=== PATIENT | female | born 1990 | race Caucasian/White ===

== ENCOUNTER → 2019-12-08 | Outpatient (REF) | payer OTHER ==
[~2019-12-08] MED LIST: FERR325T3 PO; IBUP80TA PO; PERCOCET PO
[2019-12-08 17:52] LABS: HEMOGLOBIN 13.4 g/dl (12.0-15.5); MEAN CORPUSCULAR HEMOGLOBIN 30.7 pg (27.0-33.0); MEAN CORPUSCULAR HGB CONC 33.5 g/dl (32.0-36.5); MEAN CORPUSCULAR VOLUME 91.5 fl (80.0-96.0); PLATELET COUNT, AUTOMATED 227 10^3/uL (150-450); RED BLOOD COUNT 4.37 10^6/uL (4.00-5.40); WHITE BLOOD COUNT 12.2 10^3/uL (4.0-10.0)
[2019-12-08 20:31] LABS: CHLAMYDIA DNA AMPLIFICATION NEGATIVE (NEGATIVE); GC DNA AMPLIFICATION NEGATIVE (NEGATIVE)
[2019-12-09 12:34] LABS: HIV 1&2 SCREEN CENTAUR NEGATIVE (NEGATIVE)
[2019-12-10 08:52] LABS: HEPATITIS C VIRUS ABY INDEX 0.2 INDEX (<0.8)
== END ==
LOC: M PLALAB 15:36
PROVIDERS: ATTEND Advanced Practice Midwife
DX: O34.211 Maternal care for low transverse scar from previous cesarean delivery (principal); Z3A.00 Weeks of gestation of pregnancy not specified

== ENCOUNTER → 2020-02-15 | Outpatient (CLI) | payer OTHER ==
--- NOTE | 2020-03-07 13:07 | REP ---
COMPLETE OBSTETRICAL ULTRASOUND: CLINICAL: Anatomical assessment. TECHNIQUE: Transabdominal obstetrical ultrasound with color Doppler evaluation. FINDINGS: Ultrasound examination demonstrates a single live intrauterine in variable presentation. The placenta is noted posteriorly, grade 1 and low-lying approximately 5 mm from the closed internal os. The cervix measures 3.4 cm in length and appears closed. Amniotic fluid volume is normal. heart rate is 150 beats per minute. BIOMETRY CHART: BPD 41 mm 18 weeks 3 day Head circumference 158 mm 18 weeks 5 days Abdominal circumference 143 mm 19 weeks 5 days Femur length 31 mm 19 weeks 5 days Humeral length 29 mm 19 weeks 3 days Estimated gestational age by current measurements is 19 weeks 1 day with estimated date of delivery 07/10/20. Estimated weight is 296 grams (82nd percentile). Anatomical assessment demonstrates normal cisterna magna, cavum, thalamus, spine, stomach, kidneys/bladder, heart/ventricular outflow tracts, three vessel cord/cord insertion and extremities. Limited evaluation of the facial features due to positioning. IMPRESSION: 1. Posterior grade 1 low-lying placenta 5 mm from the closed internal os. 2. Single live intrauterine in variable presentation demonstrating appropriate estimated weight and growth. 3. Limited evaluation of the facial features may warrant follow up. The remainder of the anatomical assessment is complete and normal. [facility]
== END ==
LOC: M WHC 12:36
PROVIDERS: ATTEND Advanced Practice Midwife
DX: Z34.82 Encounter for supervision of other normal pregnancy, second trimester (principal)

== ENCOUNTER → 2020-03-14 | Outpatient (CLI) | payer OTHER ==
--- NOTE | 2020-03-20 12:43 | REP ---
OB ULTRASOUND HISTORY: Follow-up anatomy. TECHNIQUE: Real-time sonographic evaluation of the gravid uterus is performed utilizing transabdominal and endovaginal technique. FINDINGS: There is a single living intrauterine gestation with estimated gestational age of 22 weeks 6 days. Estimated date of confinement (EDC) 07/12/2020. Todays measurements indicate appropriate growth. BIOMETRY AND GROWTH: BPD 53 mm 22 weeks 1 day 29th percentile HC 203 mm 22 weeks 3 days 37th percentile AC 178 mm 22 weeks 5 days 45th percentile Femur length 40 mm 23 weeks 0 days 54th percentile AC/HC ratio 1.14 Normal 1.04 to 1.23 Estimated weight 532 g 36th percentile position is breech. Placenta is posterior grade 1 with no previa or abruption. Tip of the placenta is approximately 3 cm from the internal cervical os. Umbilical cord inserts on the mid aspect of the placenta. Three-vessel cord is noted. heart rate is 143 beats per minute. Amniotic fluid appears within normal limits for gestational age. The visualized anatomy today includes facial structures, stomach, kidneys, and bladder. These are all grossly unremarkable. Cervix is closed and measures 3.5 cm in length. MTDD
== END ==
LOC: M WHC 12:46
PROVIDERS: ATTEND Advanced Practice Midwife
DX: O32.1XX0 Maternal care for breech presentation, not applicable or unspecified (principal); Z3A.22 22 weeks gestation of pregnancy

== ENCOUNTER → 2020-04-05 | Outpatient (CLI) | payer OTHER ==
[2020-04-05 17:11] LABS: HEMOGLOBIN 9.8 g/dl (12.0-15.5); MEAN CORPUSCULAR HEMOGLOBIN 31.3 pg (27.0-33.0); MEAN CORPUSCULAR HGB CONC 32.7 g/dl (32.0-36.5); MEAN CORPUSCULAR VOLUME 95.8 fl (80.0-96.0); PLATELET COUNT, AUTOMATED 240 10^3/uL (150-450); RED BLOOD COUNT 3.13 10^6/uL (4.00-5.40); WHITE BLOOD COUNT 11.8 10^3/uL (4.0-10.0)
== END ==
LOC: M PLALAB 13:18
PROVIDERS: ATTEND Advanced Practice Midwife
DX: Z34.82 Encounter for supervision of other normal pregnancy, second trimester (principal)

== ENCOUNTER → 2020-06-14 | Outpatient (REF) | payer OTHER ==
[2020-06-14 15:29] LABS: HEMATOCRIT 28.5 % (36.0-47.0); HEMOGLOBIN 9.1 g/dl (12.0-15.5); MEAN CORPUSCULAR HGB CONC 31.9 g/dl (32.0-36.5); MEAN CORPUSCULAR VOLUME 96.9 fl (80.0-96.0); PLATELET COUNT, AUTOMATED 211 10^3/uL (150-450); RED BLOOD COUNT 2.94 10^6/uL (4.00-5.40); WHITE BLOOD COUNT 12.4 10^3/uL (4.0-10.0)
== END ==
LOC: M PLALAB 13:43
PROVIDERS: ATTEND Specialist
DX: Z34.83 Encounter for supervision of other normal pregnancy, third trimester (principal); Z3A.36 36 weeks gestation of pregnancy

== ENCOUNTER → 2020-06-30 | Outpatient (CLI) | payer OTHER ==
[~2020-06-30] MED LIST changes: +OXYC1TAB23 PO
== END ==
LOC: M LABSMTC 10:39
PROVIDERS: ATTEND Anesthesiology
DX: Z01.812 Encounter for preprocedural laboratory examination (principal); Z20.822 Contact with and (suspected) exposure to COVID-19

== ENCOUNTER 2020-07-05 07:12 | Inpatient (IN) | payer OTHER ==
[~2020-07-05] VITALS: Ht 152.4 cm; Wt 65.0 kg
[2020-07-05] VITALS (7 sets, daily range): BP systolic 91–107; BP diastolic 50–67
[~2020-07-05 07:12] MED LIST changes: -OXYC1TAB23 PO
--- OUTSIDE RECORDS SUMMARY | 2020-07-05 07:15 | CCD ---
Author Author [facility] Organization [facility] Address Unknown Phone Unavailable Care Team Providers Care Editor Magazine Name Role Phone StellajudyLore Unavailable PROBLEMS Type Condition ICD9-CM Code [id number] Code Onset Dates Condition S tatus SNOMED Code Notes Problem Smoking (tobacco) complicating , second trimester O99.332 Active 781660118 Problem Anemia affecting in third trimester O99. 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, third trimester, not applicable or unspecified O36.0130 ; Maternal care due to low transverse uterine scar from previous delivery O34.211 ; 29 weeks gestation of Z3A.29 and Encounter for immunization Z23 IMMUNIZATIONS Vaccine Route Administration Date Status RHo (D) Immune Globulin 300mcg/1.5mL (RhoGAM) IM Intramuscular N 2019 Administered TDAP 0.5mL (Boostrix) IM Intramuscular Apr 27, 2020 Administe red SOCIAL HISTORY Tobacco Use: Social History Observation Description Date Details (start date - stop date) Current Smoker Sex Assigned At : Social History Observation Description Sex Assigned At Unknown Domestic Violence: Question Answer Notes Status: No history of abuse Sexual Hx: Question Answer Notes Had sex in the last 12 months (vaginal, oral, or anal)? Yes with Men only Use protection? No Tobacco Use: Question Answer Notes Are you a: current smoker How many cigarettes a day do you smoke? 5 or less Are you interested in quitting? Ready to quit Counseled the patient on tobacco use, cessation provided 06/2019 REASON FOR REFERRAL No Information VITAL SIGNS Weight 134.6 lbs Apr, Height 60 in Apr, BMI 26.287 kg/m2 Apr, Blood pressure systolic 98 mm Hg Apr, Blood pressure diastolic 58 mm Hg Apr, MEDICATIONS Medication SIG (Take, Route, Frequency, Duration) Notes Start Da te End Date Status Vitamins 28-0.8 MG 1 tablet Orally Once a day Active Ferrous Sulfate 325 (65 Fe) MG 1 tablet Orally Once a day for 30 day(s) Mar, Active PROCEDURES Procedure Date Ordered Result Body Site Immunization: Boostrix 0.5mL IM (TDAP) 2020-04-27 N/A Injection: RhoGAM 300mcg/1.5mL IM (Rho [D] Immune Globulin H uman) 2020-04-27 N/A RESULTS No Results REASON FOR VISIT 3-4 WK PN MEDICAL (GENERAL) HISTORY Type Description Date Surgical History C section 09/25/2014 Hospitalization History childbirth Goals Section No Information Health Concerns No Information MEDICAL EQUIPMENT No Information MENTAL STATUS No Information FUNCTIONAL STATUS No Information ASSESSMENTS Encounter Date Diagnosis Assessment Notes Treatment Notes Treatm ent Clinical Notes Apr, Maternal care for anti-D [Rh ] antibodies, third trimester, not applicable or unspecified (ICD-10 - O36.0130) Apr, Maternal care due to low tra nsverse uterine scar from previous delivery (ICD-10 - O34.211) Apr, 29 weeks gestation of (ICD-10 - Z3A.29 ) Apr, Encounter for immunization (ICD-10 - Z23) PLAN OF TREATMENT Next Appt Details 2 Weeks Reason: Provider Name:Michelle Cooper, 2020-05 01:00:00 PM, [address] [place], [address], Provider Name:Ty Armstrong, 2020-06-14 01:00:00 PM, [address] [place], [phone], Provider Name:Ty Armstrong 2020-07-05 09:30:00 AM, [address] [place] [address], [phone], Provider Name:Bennett Hernadez, 2020-07-05 0 9:30:00 AM, [address] [place] [address], [phone], Provider Name:Ty Armstrong, 2020-07-19 09:40:00 AM, [address] [place] [address], [phone], Provider Name:Ty Armstrong, 2020-08-29 11:40:00 AM, [address] [place] [address], [phone], Follow Up:2 WeeksPrenatal Insurance Providers Payer Name Payer Address Payer Phone Insured Name Patient Relati onship to Insured Coverage Start Date Coverage End Date [facility] [address] [facility] [id number] AMANDA WONG self
--- OUTSIDE RECORDS SUMMARY | 2020-07-05 07:15 | CCD ---
Author Author [facility] Organization [facility] Address Unknown Phone Unavailable Care Team Providers Care Curator Of Education Name Role Phone Ty Armstrong Unavailable PROBLEMS Type Condition ICD9-CM Code DXF23-TZ Code Onset Dates Condition S tatus SNOMED Code Notes Problem Supervision of other normal Z34.80 Ac tive [id number] Problem Smoking (tobacco) complicating , second trimester O99.332 Active 645612718 ALLERGIES No Known Allergies ENCOUNTERS from 1991 to 2020-04-24 Encounter Location Date Provider Diagnosis [facility] [address] [place] [phone] Apr, Ty Armstrong IMMUNIZATIONS No Information SOCIAL HISTORY Tobacco Use: Social History Observation [...] REASON FOR REFERRAL No Information VITAL SIGNS No information MEDICATIONS Medication SIG (Take, Route, Frequency, Duration) Notes Start Da te End Date Status Ferrous Sulfate 325 (65 Fe) MG 1 tablet Orally Once a day for 30 day(s) Mar, Active Vitamins 28-0.8 MG 1 tablet Orally Once a day Active PROCEDURES No Information RESULTS No Results REASON FOR VISIT AUTHORIZATION MEDICAL (GENERAL) HISTORY Type Description Date Surgical History C section 09/25/2014 Hospitalization History childbirth Goals Section No Information Health Concerns No Information MEDICAL EQUIPMENT No Information MENTAL STATUS No Information FUNCTIONAL STATUS No Information ASSESSMENTS No Information PLAN OF TREATMENT Medication Medication Name Sig Start Date Stop Date Ferrous Sulfate 325 (65 Fe) MG 1 tablet Orally Once a day fo r 30 day(s) Mar, Next Appt Details Provider Name:Lore Edenilson Toan, 2020-04-27 11:00:00 AM, [address] [place] [address], [phone], Provider Name:Ty Armstrong, 2020-06-14 01:00:00 PM, [address] [place] [address], [phone], Provider Name:Ty Armstrong, 2020-07-05 09:30:00 AM, [address] [place] [address], [phone], Provider Name:Bennett Hernadez, 2020-07-05 0 9:30:00 AM, [address] [place] [address], [phone], Provider Name:Ty Armstrong, 2020-07-19 09:40:00 AM, [address] [place] [address], [phone], Provider Name:Ty Armstrong, 2020-08-29 11:40:00 AM, [address] [place] [address], [phone], Insurance Providers Payer Name Payer Address Payer Phone Insured Name Patient Relati onship to Insured Coverage Start Date Coverage End Date [facility] [address] [facility] [phone] AMANDA WONG self
--- OUTSIDE RECORDS SUMMARY | 2020-07-05 07:15 | CCD ---
Author Author [facility] Organization [facility] [employer] Address Unknown Phone Unavailable Care Team Providers Care Brass Polisher Name Role Phone Joann White Unavailable PROBLEMS Type Condition ICD9-CM Code WZP11-NR Code Onset Dates Condition S tatus SNOMED Code Notes Problem Supervision of other normal Z34.80 Ac tive 844938098 Problem Smoking (tobacco) complicating , second trimester O99.332 Active 773456490 ALLERGIES No Known Allergies ENCOUNTERS from 1991 to 2020-04-26 Encounter Location Date Provider Diagnosis [facility] [address] [place] [phone] Mar, Joann White Smoking (tobacco) co mplicating , second trimester O99.332 ; Nicotine dependence, cigarettes, uncomplicated F17.210 ; Maternal care due to low transverse uterine scar from previous delivery O34.211 and 26 weeks gestation of Z3A.26 IMMUNIZATIONS No Information SOCIAL HISTORY Tobacco Use: [...] FOR REFERRAL No Information VITAL SIGNS Weight 132.8 lbs Mar, Height 60 in Mar, BMI 25.936 kg/m2 Mar, Blood pressure systolic 102 mm Hg Mar, Blood pressure diastolic 58 mm Hg Mar, MEDICATIONS Medication SIG (Take, Route, Frequency, Duration) Notes Start Da te End Date Status Ferrous Sulfate 325 (65 Fe) MG 1 tablet Orally Once a day for 30 day(s) Mar, Active Vitamins 28-0.8 MG 1 tablet Orally Once a day Active PROCEDURES No Information RESULTS No Results REASON FOR VISIT 4WK PN MEDICAL (GENERAL) HISTORY Type Description Date Surgical History C section 09/25/2014 Hospitalization History childbirth Goals Section No Information Health Concerns No Information MEDICAL EQUIPMENT No Information MENTAL STATUS No Information FUNCTIONAL STATUS No Information ASSESSMENTS Encounter Date Diagnosis Assessment Notes Treatment Notes Treatm ent Clinical Notes Mar, Smoking (tobacco) complicati ng , second trimester (ICD-10 - O99.332) Mar, Nicotine dependence, cigarettes, uncompl icated (ICD-10 - F17.210) Mar, Maternal care due to low tra nsverse uterine scar from previous delivery (ICD-10 - O34.211) Mar, 26 weeks gestation of (ICD-10 - Z3A.26 ) PLAN OF TREATMENT Medication Medication Name Sig Start Date Stop Date Ferrous Sulfate 325 (65 Fe) MG 1 tablet Orally Once a day fo r 30 day(s) Mar, Next Appt Details 3-4 Weeks Reason:PAP/ Provider Name:Lore Joya, 2020-04-27 11:00:00 AM, [address] [place] [address], [phone], Provider Name:Ty Armstrong, 2020-06-14 01:00:00 PM, [address] [place] [address], [phone], Provider Name:Ty Armstrong, 2020-07-05 09:30:00 AM, [address] [place] [address], [phone], Provider Name:Bennett Hernadez, 2020-07-05 0 9:30:00 AM, [address] [place] [address], [phone], Provider Name:Ty Armstrong, 2020-07-19 09:40:00 AM, [address] [place], [phone], Provider Name:Ty Armstrong, 2020-08-29 11:40:00 AM, [address] [place], [address], Follow Up:3-4 WeeksPAP/ Insurance Providers Payer Name Payer Address Payer Phone Insured Name Patient Relati onship to Insured Coverage Start Date Coverage End Date [facility] COMMUNITY PLAN [facility] [address] [facility] [address] AMANDA WONG
--- OUTSIDE RECORDS SUMMARY | 2020-07-05 07:15 | CCD ---
Author Author [facility] Organization [facility] Address Unknown Phone Unavailable Care Team Providers Care Student Services Rep Name Role Phone CANDACE PEREZ Unavailable Unavailable Re-disclosure Warning The records that you are about to access may contain information from federally-assisted alcohol or drug abuse programs. If such information is present, then the following federally mandated warning applies: This information has been disclosed to you from records protected by federal confidentiality rules (42 CFR part 2). The federal rules prohibit you from making any further disclosure of this information unless further disclosure is expressly permitted by the written consent of the person to whom it pertains or as otherwise permitted by 42 CFR part 2. A general authorization for the release of medical or other information is NOT sufficient for this purpose. The Federal rules restrict any use of the information to criminally investigate or prosecute any alcohol or drug abuse patient.The records that you are about to access may contain highly sensitive health information, the redisclosure of which is protected by Article 27-F of the [place] State Public Health law. If you continue you may have access to information: Regarding HIV / AIDS; Provided by facilities licensed or operated by the [facility] Office of Mental Health; or Provided by the [facility] Office for People With Developmental Disabilities. If such information is present, then the following [facility] mandated warning applies: This information has been disclosed to you from confidential records which are protected by state law. State law prohibits you from making any further disclosure of this information without the specific written consent of the person to whom it pertains, or as otherwise permitted by law. Any unauthorized further disclosure in violation of state law may result in a fine or [place] [facility] sentence or both. A general authorization for the release of medical or other information is NOT sufficient authorization for further disc losure. Family History Family Member Name Family Member Gender Family Member Status Date o f Status Description Data Source(s) Unknown Unknown Problem MEDENT ([facility], ) Encounters Encounter Providers Location Date Indications Data Source(s ) ( ESTOB) [facility] Est OB [address] [place] [address] 06/14/2020 12:00:00 AM EST eCW1 ([facility]) ( ESTOB) [facility] Est OB [address] [place] [address] 05/16/2020 12:00:00 AM EST eCW1 ([facility]) ( ESTOB) [facility] Est OB [address] [place] [address] 04/27/2020 12:00:00 AM EST eCW1 ([facility]) Unknown [address] [facility] [phone] 04/24/2020 12:00:00 AM EST eCW1 ([facility]) ( ESTOB) [facility] Est OB [address] [place] [address] 04/05/2020 12:00:00 AM EDT eCW1 ([facility]) Unknown [address] [facility] [address] 04/05/2020 12:00:00 AM EDT eCW1 ([facility]) Outpatient Attender: CANDACE [facility] 11/16/2019 07:52:01 PM EDT [facility] Immunizations Vaccine Date Status Description Data Source(s) RHo (D) Immune Globulin 300mcg/1.5mL (RhoGAM) 04/27/2020 11: 36:00 AM EST completed eCW1 ([facility]) RHo (D) Immune Globulin 300mcg/1.5mL (RhoGAM) 04/27/2020 11: 36:00 AM EST completed eCW1 ([facility]) RHo (D) Immune Globulin 300mcg/1.5mL (RhoGAM) 04/27/2020 11: 36:00 AM EST completed eCW1 ([facility]) Tdap 04/27/2020 11:34:00 AM EST completed e CW1 ([facility]) Tdap 04/27/2020 11:34:00 AM EST completed e CW1 ([facility]) Tdap 04/27/2020 11:34:00 AM EST completed e CW1 ([facility]) Medications Medication Brand Name Start Date Product Form Dose Route Admi nistrative Instructions Pharmacy Instructions Status Indications Reaction Description Data Source(s) 325 mg (65 mg iron) 04/06/2020 12:00:00 AM EDT tablet 30 TAKE ONE TABLET BY MOUTH EVERY DAY TAKE ONE TABLET BY MOUTH EVERY DAY SOLD: 04/06/2020 [facility] ferrous sulfate 325 MG Oral Tablet Ferrous Sulfate 325 (65 Fe) MG Ferrous Sulfate 325 (65 Fe) MG 04/05/2020 12:00:00 AM EDT 1.0 {tablet} active Ferrous Sulfate 325 (65 Fe) MG eCW1 ([facility]) ferrous sulfate 325 MG Oral Tablet Ferrous Sulfate 325 (65 Fe) MG Ferrous Sulfate 325 (65 Fe) MG 04/05/2020 12:00:00 AM EDT 1.0 {tablet} active Ferrous Sulfate 325 (65 Fe) MG eCW1 ([facility]) ferrous sulfate 325 MG Oral Tablet Ferrous Sulfate 325 (65 Fe) MG Ferrous Sulfate 325 (65 Fe) MG 04/05/2020 12:00:00 AM EDT 1.0 {tablet} active Ferrous Sulfate 325 (65 Fe) MG eCW1 ([facility]) ferrous sulfate 325 MG Oral Tablet Ferrous Sulfate 325 (65 Fe) MG Ferrous Sulfate 325 (65 Fe) MG 04/05/2020 12:00:00 AM EDT 1.0 {tablet} active Ferrous Sulfate 325 (65 Fe) MG eCW1 ([facility]) ferrous sulfate 325 MG Oral Tablet Ferrous Sulfate 325 (65 Fe) MG Ferrous Sulfate 325 (65 Fe) MG 04/05/2020 12:00:00 AM EDT 1.0 {tablet} active Ferrous Sulfate 325 (65 Fe) MG eCW1 ([facility]) ferrous sulfate 325 MG Oral Tablet Ferrous Sulfate 325 (65 Fe) MG Ferrous Sulfate 325 (65 Fe) MG 04/05/2020 12:00:00 AM EDT 1.0 {tablet} active Ferrous Sulfate 325 (65 Fe) MG eCW1 ([facility]) Insurance Providers Payer name Policy type / Coverage type Policy ID Covered green party ID Covered green party's relationship to munson Policy [employer] Plan Information [facility] [id number] SP [id number] [facility] O [id number] S [id number] [facility] [employer] (HMO) [id number] Self [id number] D Managed Care [facility] P [id number] S [id number] [facility] [id number] SP [id number] MEDICAID S [id number] S [id number] [facility]([place]) P [id number] S [id number] MEDICAID [id number] SP [id number] Problems, Conditions, and Diagnoses Code Display Name Description Problem Type Effective Dates Data Source(s) O99.013 Anemia of Anemia affecting i n third trimester Problem 04/27/2020 12:00:00 AM EST eCW1 ([facility]) O99.332 [id number] Smoking (tobacco) complicating p regnancy, second trimester Problem 04/05/2020 12:00:00 AM EDT eCW1 ([facility]) Z34.80 care Supervision of other normal P roblem 12/08/2019 12:00:00 AM EDT eCW1 ([facility]) Surgeries/Procedures Procedure Description Date Indications Data Source(s) Injection: RhoGAM 300mcg/1.5mL IM (Rho [D] Immune Globulin H uman) 04/27/2020 12:00:00 AM EST eCW1 ([facility]) Immunization: Boostrix 0.5mL IM (TDAP) 04/27/2020 12:0 0:00 AM EST eCW1 ([facility]) Results ID Date Data Source [id number] 06/30/2020 10:00:00 AM EST [facility] Name Value Range Interpretation Code Description Data Ragini rce(s) Supporting Document(s) SARS coronavirus 2 RNA Not Detected [facility] [place] This lab was ordered by [facility] and reported by [facility]. ID Date Data Source GROUP B STREP CULTURE 06/14/2020 12:00:00 AM EST eCW1 ([facility]) Name Value Range Interpretation Code Description Data Ragini rce(s) Supporting Document(s) GROUP B STREP CULTURE eCW1 ([facility]) Procedure Social History Code Duration Value Status Description Data Source(s ) Smoking 06/24/2020 12:00:00 AM EST Current Smoker completed Curre nt Smoker eCW1 ([facility]) Smoking 05/15/2020 12:00:00 AM EST Current Smoker completed Curre nt Smoker eCW1 ([facility]) Smoking 04/26/2020 12:00:00 AM EST Current Smoker completed Curre nt Smoker eCW1 ([facility]) Smoking 04/26/2020 12:00:00 AM EST Current Smoker completed Curre nt Smoker eCW1 ([facility]) Smoking 03/31/2020 12:00:00 AM EDT Current Smoker completed Curre nt Smoker eCW1 ([facility]) Smoking 03/31/2020 12:00:00 AM EDT Current Smoker completed Curre nt Smoker eCW1 ([facility]) Vital Signs ID Date Data Source UNK Name Value Range Interpretation Code Description Data Source(s) Diastolic blood pressure 72 mm[Hg] 72 mm[Hg] eCW1 ([facility]) Systolic blood pressure 108 mm[Hg] 108 mm[Hg] e CW1 ([facility]) Body mass index (BMI) [Ratio] 27.693 kg/m2 27.6 93 kg/m2 W1 ([facility]) Body height 60 [in_i] 60 [in_i] eCW1 ([facility]) Body weight 64.32 kg 64.32 kg eCW1 ([facility]) Body weight 141.8 [lb_av] 141.8 [lb_av] eCW1 ([facility]) Diastolic blood pressure 56 mm[Hg] 56 mm[Hg] eCW1 ([facility]) Systolic blood pressure 106 mm[Hg] 106 mm[Hg] e CW1 ([facility]) Body mass index (BMI) [Ratio] 26.951 kg/m2 26.9 51 kg/m2 eCW1 ([facility]) Body height 60 [in_i] 60 [in_i] eCW1 ([facility]) Body weight 62.6 kg 62.6 kg eCW1 ([facility]) Body weight 138.0 [lb_av] 138.0 [lb_av] eCW1 ([facility]) Body weight 134.6 [lb_av] 134.6 [lb_av] eCW1 ([facility]) Diastolic blood pressure 58 mm[Hg] 58 mm[Hg] eCW1 ([facility]) Systolic blood pressure 98 mm[Hg] 98 mm[Hg] e CW1 ([facility]) Body mass index (BMI) [Ratio] 26.287 kg/m2 26.2 87 kg/m2 eCW1 ([facility]) Body height 60 [in_i] 60 [in_i] eCW1 ([facility]) Diastolic blood pressure 58 mm[Hg] 58 mm[Hg] eCW1 ([facility]) Systolic blood pressure 102 mm[Hg] 102 mm[Hg] e CW1 ([facility]) Body mass index (BMI) [Ratio] 25.936 kg/m2 25.9 36 kg/m2 W1 ([facility]) Body height 60 [in_i] 60 [in_i] eCW1 ([facility]) Body weight 132.8 [lb_av] 132.8 [lb_av] eCW1 ([facility]) Patient Treatment Plan of Care Planned Activity Planned Date Details Description Data Source (s) ferrous sulfate 325 MG Oral Tablet 04/05/2020 12:00:00 AM EDT eCW1 ([facility]) ferrous sulfate 325 MG Oral Tablet 04/05/2020 12:00:00 AM EDT eCW1 ([facility]) ferrous sulfate 325 MG Oral Tablet 04/05/2020 12:00:00 AM EDT eCW1 ([facility])
--- OUTSIDE RECORDS SUMMARY | 2020-07-05 07:15 | CCD ---
Author Author [facility] Organization [facility] Address Unknown Phone Unavailable Care Team Providers Care Customer Business Manager Name Role Phone Michelle Cooper Unavailable PROBLEMS Type Condition ICD9-CM Code [id number] Code Onset Dates Condition S tatus SNOMED Code Notes Problem Smoking (tobacco) complicating , second trimester O99.332 Active 435014605 Problem Anemia affecting in third trimester O99. 013 Active 45274043 Problem Supervision of other normal Z34.80 Ac tive [id number] ALLERGIES No Known Allergies ENCOUNTERS from 1991 to 2020-05-17 Encounter Location Date Provider Diagnosis [facility] [address] [place] [address] May, Michelle Cooper 31 weeks gestation o f Z3A.31 and Maternal care due to low transverse uterine scar from previous delivery O34.211 IMMUNIZATIONS Vaccine Route Administration Date Status RHo [...] FOR REFERRAL No Information VITAL SIGNS Weight 138.0 lbs May, Weight-kg 62.6 kg May, Height 60 in May, BMI 26.951 kg/m2 May, Blood pressure systolic 106 mm Hg May, Blood pressure diastolic 56 mm Hg May, MEDICATIONS Medication SIG (Take, Route, Frequency, Duration) Notes Start Da te End Date Status Vitamins 28-0.8 MG 1 tablet Orally Once a day Active Ferrous Sulfate 325 (65 Fe) MG 1 tablet Orally Once a day for 30 day(s) Mar, Active PROCEDURES No Information RESULTS No Results REASON FOR VISIT 2WK PN MEDICAL (GENERAL) HISTORY Type Description Date Surgical History C section 09/25/2014 Hospitalization History childbirth Goals Section No Information Health Concerns No Information MEDICAL EQUIPMENT No Information MENTAL STATUS No Information FUNCTIONAL STATUS No Information ASSESSMENTS Encounter Date Diagnosis Assessment Notes Treatment Notes Treatm ent Clinical Notes May, 31 weeks gestation of (ICD-10 - Z3A.31 ) May, Maternal care due to low tra nsverse uterine scar from previous delivery (ICD-10 - O34.211) PLAN OF TREATMENT Next Appt Details 4 Weeks Reason:PN Provider Name:Ty Armstrong, 2020-06-14 01:00:00 PM, [address] [place] [address], [phone], Provider Name:Ty Armstrong 2020-07-05 09:30:00 AM, [address] [place] [address], [phone], Provider Name:Bennett Hernadez, 2020-07-05 0 9:30:00 AM, [address] [place] [address], [phone], Provider Name:Ty Armstrong 2020-07-19 09:40:00 AM, [address] [place] [address], [phone], Provider Name:Ty Armstrong 2020-08-29 11:40:00 AM, [address] [place] [address], [phone], Follow Up:4 WeeksPN Insurance Providers Payer Name Payer Address Payer Phone Insured Name Patient Relati onship to Insured Coverage Start Date Coverage End Date [facility] [address] [facility] [phone] AMANDA WONG self
--- OUTSIDE RECORDS SUMMARY | 2020-07-05 07:15 | CCD ---
Author Author [facility] Organization [facility] Address Unknown Phone Unavailable Care Team Providers Care Legal Writing Professor Name Role Phone Ty Armstrong Unavailable PROBLEMS Type Condition ICD9-CM Code [id number] Code Onset Dates Condition S tatus SNOMED Code Notes Problem Smoking (tobacco) complicating , second trimester O99.332 Active 717125943 Problem Anemia affecting in third trimester O99. 013 Active 65483061 Problem Supervision of other normal Z34.80 Ac tive [id number] ALLERGIES No Known Allergies ENCOUNTERS from 1991 to 2020-06-28 Encounter Location Date Provider Diagnosis [facility] [address] [place] [address] Jun, Ty Armstrong 36 weeks gestation o f Z3A.36 and Maternal care due to low transverse [...] FOR REFERRAL No Information VITAL SIGNS Weight 141.8 lbs Jun, Weight-kg 64.32 kg Jun, Height 60 in Jun, BMI 27.693 kg/m2 Jun, Blood pressure systolic 108 mm Hg Jun, Blood pressure diastolic 72 mm Hg Jun, MEDICATIONS Medication SIG (Take, Route, Frequency, Duration) Notes Start Da te End Date Status Vitamins 28-0.8 MG 1 tablet Orally Once a day Active Ferrous Sulfate 325 (65 Fe) MG 1 tablet Orally Once a day for 30 day(s) Mar, Active PROCEDURES No Information RESULTS Component Value Reference Range GROUP B STREP CULTURE Reviewed date:06/27/2020 15:25:12 Interpretation: Performing Lab:[facility], [facility] [address] [facility] [address] , ,[place] [id number] REASON FOR VISIT 1WK PN & PRE OP C/S 07/05/20 MEDICAL (GENERAL) HISTORY Type Description Date Surgical History C section 09/25/2014 Hospitalization History childbirth Goals Section No Information Health Concerns No Information MEDICAL EQUIPMENT No Information MENTAL STATUS No Information FUNCTIONAL STATUS No Information ASSESSMENTS Encounter Date Diagnosis Assessment Notes Treatment Notes Treatm ent Clinical Notes Jun, 36 weeks gestation of (ICD-10 - Z3A.36 ) Jun, Maternal care due to low tra nsverse uterine scar from previous delivery (ICD-10 - O34.211) PLAN OF TREATMENT Treatment Notes Test Name Order Date CBC - Complete Blood Count 2020-06-28 Next Appt Details Provider Name:Joann White, 2020-06-30 11:40:00 AM, [address] [place] [address], [phone], Provider Name:Ty Armstrong, 2020-07-05 09:30:00 AM, [address] [place] [address], [phone], Provider Name:Bennett Hernadez, 2020-07-05 0 9:30:00 AM, [address] [place] [address], [phone], Provider Name:Ty Armstrong, 2020-07-19 10:00:00 AM, [address] [place], [phone], Provider Name:Ty Armstrong, 2020-08-29 11:40:00 AM, [address] [place], [phone], Insurance Providers Payer Name Payer Address Payer Phone Insured Name Patient Relati onship to Insured Coverage Start Date Coverage End Date [facility] [address] [facility] [phone] AMANDA WONG
--- OUTSIDE RECORDS SUMMARY | 2020-07-05 07:15 | CCD ---
Author Author [facility] Organization [facility] Address Unknown Phone Unavailable Care Team Providers Care College Dean Name Role Phone SatyaBennett Unavailable PROBLEMS Type Condition ICD9-CM Code PNH37-CS Code Onset Dates Condition S tatus SNOMED Code Notes Problem Supervision of other normal Z34.80 Ac tive 118896465 Problem Smoking (tobacco) complicating , second trimester O99.332 Active [id number] ALLERGIES No Known Allergies ENCOUNTERS from 1991 to 2020-04-06 Encounter Location Date Provider Diagnosis [facility] [address] [place] [phone] Mar, Bennett Hernadez IMMUNIZATIONS No Information SOCIAL HISTORY Tobacco Use: [...] MEDICATIONS Medication SIG (Take, Route, Frequency, Duration) Start Date En d Date Status Ferrous Sulfate 325 (65 Fe) MG 1 tablet Orally Once a day fo r 30 day(s) Mar, Active Vitamins 28-0.8 MG 1 tablet Orally Once a day Active PROCEDURES No Information RESULTS No Results REASON FOR VISIT No Information MEDICAL (GENERAL) HISTORY Type Description Date Surgical [...] 30 day(s) Mar, Next Appt Details Provider Name:Ty Armstrong, 2020-07-05 09:30:00 AM, [address] [place] [address], [phone], Provider Name:Bennett Hernadez, 2020-07-05 0 9:30:00 AM, [address] [place] [address], [phone], Insurance Providers Payer Name Payer Address Payer Phone Insured Name Patient Relati onship to Insured Coverage Start Date Coverage End Date [facility] COMMUN[facility] PLAN [facility] [address] [facility] [phone] AMANDA WONG self
[2020-07-05] MEDS ORDERED: LR 1,000 ML IV SCH ×3 (07:55→10:45)
[2020-07-05] MEDS ORDERED: LACTATED RINGER'S 1000 ML IV STA (07:55)
[2020-07-05] MEDS ORDERED: ceFAZolin SOD 2 GM in IV 1 EA IV ONE (08:00)
[2020-07-05] MEDS ORDERED: BICITRA 30ML SOLN UDC PO ONE (08:00)
[2020-07-05 08:28] LABS: HEMATOCRIT 30.9 % (36.0-47.0); HEMOGLOBIN 10.3 g/dl (12.0-15.5); MEAN CORPUSCULAR HGB CONC 33.3 g/dl (32.0-36.5); MEAN CORPUSCULAR VOLUME 93.1 fl (80.0-96.0); PLATELET COUNT, AUTOMATED 225 10^3/uL (150-450); RED BLOOD COUNT 3.32 10^6/uL (4.00-5.40); WHITE BLOOD COUNT 11.1 10^3/uL (4.0-10.0)
[2020-07-05] MEDS ORDERED: MORPHINE PRES-FREE INJ 10 MG/10 ML VIAL (J2274) As Ordered ONE (09:21)
[2020-07-05] MEDS ORDERED: OXYTOCIN 30 UNITS IN 0.9% NaCl 500ML IV BAG (J2590) As Ordered ONE ×2 (09:21→10:49)
[2020-07-05] MEDS ORDERED: ePHEDrine SULFATE 25 MG/5 ML(5MG/ML) SYRINGE As Ordered ONE (09:21)
[2020-07-05] MEDS ORDERED: PHENYLephrine 500MCG 5ML (100MCG/ML) SYRINGE As Ordered ONE (09:21)
[2020-07-05] MEDS ORDERED: NALBUPHINE HCL 10 MG/ML AMP (J2300) IV PRN (09:45)
[2020-07-05] MEDS ORDERED: NALOXONE INJ 0.4MG/1ML VIAL (J2310 PER 1MG) IV PRN ×2 (09:45)
[2020-07-05] MEDS ORDERED: ONDANSETRON 4MG/2ML VIAL IV PRN ×3 (09:45→10:45)
[2020-07-05] MEDS ORDERED: METOCLOPRAMIDE INJ 10MG/2ML VIAL (J2765 PER 1) IV PRN (09:45)
[2020-07-05] MEDS ORDERED: ONDANSETRON 4MG/2ML VIAL As Ordered ONE (09:53)
[2020-07-05] MEDS ORDERED: METOCLOPRAMIDE INJ 10MG/2ML VIAL (J2765 PER 1) As Ordered ONE (10:07)
[2020-07-05] MEDS ORDERED: KETOROLAC 60MG 2ML VIAL As Ordered ONE (10:07)
[2020-07-05] MEDS ORDERED: OXYTOCIN DRIP 30 UNITS in IV 1 EA IV SCH (10:31)
--- NOTE | 2020-07-05 10:41 | ROOPDOC ---
[facility] Report Of Operation Report of Operation DATE OF PROCEDURE: 07/05/20 Report of operation Preoperative diagnosis: 39 0/7 weeks, prior Postoperative diagnosis: same Procedure: Repeat low transverse section. Surgeon: Marin Harrington M.D. Asst.: Bennett Hernadez CNM EBL: 500 ml. Urine output: 100 mL's. Findings: 6 lbs. 13 oz. male , Score 9 and 9 g, normal uterus, fallopian tubes, ovaries. Operative summary: Patient taken to the operating room where spinal anesthesia was induced. She was prepped draped sterile fashion in the supine position. A Ashley catheter was placed. A Pfannenstiel skin incision was made with scalpel. Fascia was incised and extended bilaterally. The peritoneal cavity was entered. A Mobius retractor was placed. A bladder flap was created. A curvilinear incision was made in lower uterine segment until Clear fluid was noted. The incision was extended manually. The was delivered from the vertex position without difficulty. Cord was double clamped and cut. The infant was handed waiting nurses. The placenta was expressed. Uterus was closed with O- Vicryl in a running locked fashion. A second imbricating layer of Vicryl was placed. Peritoneum was closed with 2-0 Vicryl a running fashion. Fascia was closed with 0 Vicryl in running fashion. Skin was closed 4-0 Monocryl subcuticular sutures. Sponge, instrument and needle counts were correct. Bennett Hernadez CNM, assisted with all aspects of the procedure. She helped create each layer of the incision and deliver the fetus. MARIN HARRINGTON MD Jul 05, 2020 10:41
[2020-07-05] MEDS ORDERED: OXYC1TAB23 PO (10:42)
[2020-07-05] MEDS ORDERED: IBUP80TA PO (10:43)
[2020-07-05] MEDS ORDERED: MEASLES,MUMPS,RUBELLA VACCINE INJ (MMR-II) (90707) SC SCH (10:45)
[2020-07-05] MEDS ORDERED: oxyCODONE 5MG TAB PO PRN (10:45)
[2020-07-05] MEDS ORDERED: PERCOCET 5MG/325MG TAB PO PRN (10:45)
[2020-07-05] MEDS ORDERED: fentaNYL 100 MCG/2 ML INJECTION (J3010) IV PRN (10:45)
[2020-07-05] MEDS ORDERED: RHOGAM 300 MCG (1500 IU) INJ (J2790) IM SCH (10:45)
[2020-07-05] MEDS: diphenhydrAMINE 50MG/ML VIAL (J1200) IV PRN ×2 (15:17→19:36)
[2020-07-05] MEDS: KETOROLAC 30 MG/ML 1ML VIAL IV SCH ×2 (15:42→21:55)
[2020-07-05] MEDS ORDERED: LR 1,000 ML IV ONE (15:45)
[2020-07-05] MEDS: DOCUSATE SODIUM 100MG CAPSULE PO PRN (21:55)
[2020-07-06] VITALS (8 sets, daily range): BP systolic 86–104; BP diastolic 43–59
[2020-07-06] MEDS: KETOROLAC 30 MG/ML 1ML VIAL IV SCH (04:03)
[2020-07-06] MEDS: diphenhydrAMINE 50MG/ML VIAL (J1200) IV PRN (04:03)
[2020-07-06] MEDS: PRENATAL VITAMINS CHEWABLE TABLET PO SCH (08:06)
[2020-07-06] MEDS: PERCOCET 5MG/325MG TAB PO PRN ×3 (08:07→21:05)
[2020-07-06 09:47] LABS: HEMATOCRIT 27.8 % (36.0-47.0); MEAN CORPUSCULAR HEMOGLOBIN 31.3 pg (27.0-33.0); MEAN CORPUSCULAR HGB CONC 32.4 g/dl (32.0-36.5); MEAN CORPUSCULAR VOLUME 96.5 fl (80.0-96.0); PLATELET COUNT, AUTOMATED 187 10^3/uL (150-450); RED BLOOD COUNT 2.88 10^6/uL (4.00-5.40); WHITE BLOOD COUNT 10.5 10^3/uL (4.0-10.0)
[2020-07-06] MEDS: IBUPROFEN 800 MG TAB PO SCH ×2 (11:50→19:50)
[2020-07-06] MEDS: DOCUSATE SODIUM 100MG CAPSULE PO PRN (19:50)
[2020-07-07 02:00] VITALS: BP 110/61
[2020-07-07] MEDS: IBUPROFEN 800 MG TAB PO SCH (04:11)
[2020-07-07 06:14] VITALS: BP 105/56
[2020-07-07] MEDS: PRENATAL VITAMINS CHEWABLE TABLET PO SCH (08:55)
[2020-07-07] MEDS: PERCOCET 5MG/325MG TAB PO PRN (08:57)
--- NOTE | 2020-07-07 09:32 | DS.PDOC ---
Discharge Summary General Date of Admission Jul 05, 2020 at 07:12 Date of Discharge Jul 05 Attending Physician: MARIN HARRINGTON MD Discharge Summary PROCEDURES PERFORMED DURING STAY: [None]. ADMITTING DIAGNOSES: 1. 39 weeks, prior . DISCHARGE DIAGNOSES: 1. Same. COMPLICATIONS/CHIEF COMPLAINT: Previous Section. HISTORY OF PRESENT ILLNESS: 29-year-old female at 39 weeks gestation presents for repeat section. She has had 1 prior section. There were no complications. HOSPITAL COURSE: On 07/05/2020. The patient underwent repeat low transverse section without complication. Her postoperative course was unremarkable. She had adequate return of bladder and bowel function. Her postoperative hemoglobin was 9.0 g/dL she was deemed stable for discharge on postop day #2. DISCHARGE MEDICATIONS: Please see below. ALLERGIES: Please see below. PHYSICAL EXAMINATION ON DISCHARGE: VITAL SIGNS: Please see below. GENERAL: Within normal limits HEENT: Normocephalic, atraumatic NECK: Within normal limits CARDIOVASCULAR EXAMINATION: RRR RESPIRATORY EXAMINATION: Clear to auscultation ABDOMINAL EXAMINATION: Nontender, incision clean, dry, intact EXTREMITIES: Nontender, trace edema LABORATORY DATA: Please see below. PROGNOSIS: good ACTIVITY: As tolerated. DIET: Regular DISCHARGE INSTRUCTIONS: 1. Discharge home. 2. Instructions reviewed DISCHARGE CONDITION: Stable. TIME SPENT ON DISCHARGE: Greater than 10 minutes. Vital Signs/I&Os Vital Signs Date Time Temp Pulse Resp B/P (MAP) Pulse Ox O2 Delivery O2 Flow Rate FiO2 07/07/20 08:57 18 07/07/20 06:14 98.0 77 105/56 (72) 07/07/20 02:00 98 Room Air I&O- Last 24 Hours up to 6 AM 07/07/20 06:00 Intake Total 200 ml Balance 200 ml Discharge Medications Scheduled Ibuprofen (Ibuprofen) 800 Mg Tablet, 800 MG PO Q8H Scheduled PRN Oxycodone HCl/Acetaminophen (Oxycodone-Acetaminophen 5-325) 1 Each Tablet, 1 TAB PO TIDP PRN for pain Allergies Coded Allergies: No Known Allergies (Unverified , 09/24/14) MARIN HARRINGTON MD Jul 07, 2020 09:32
== END 2020-07-07 13:10 | disposition home or self-care (01) | DRG 540 ==
LOC: M LDI 07:12 → M OBS 11:47
PROVIDERS: ADMIT Specialist; ATTEND Specialist
PROC: 10D00Z1 Extraction of Products of Conception, Low, Open Approach (ICD-10-PCS; principal; 2020-07-05 09:30)
DX: O34.211 Maternal care for low transverse scar from previous cesarean delivery (principal); O99.334 Smoking (tobacco) complicating childbirth; F17.210 Nicotine dependence, cigarettes, uncomplicated; Z3A.39 39 weeks gestation of pregnancy; Z37.0 Single live birth

== ENCOUNTER → 2024-08-10 | Outpatient (CLI) | payer OTHER ==
[~2024-08-10] MED LIST changes: +OXYC1TAB23 PO
[2024-08-10 17:24] LABS: HEMATOCRIT 31.1 % (36.0-47.0); HEMOGLOBIN 10.4 g/dl (12.0-15.5); MEAN CORPUSCULAR HEMOGLOBIN 30.8 pg (27.0-33.0); MEAN CORPUSCULAR HGB CONC 33.4 g/dl (32.0-36.5); PLATELET COUNT, AUTOMATED 260 10^3/uL (150-450); RED BLOOD COUNT 3.38 10^6/uL (4.00-5.40); WHITE BLOOD COUNT 13.6 10^3/uL (4.0-10.0)
[2024-08-10 18:28] LABS: HIV 1&2 SCREEN NEGATIVE (NEGATIVE)
[2024-08-10 18:32] LABS: Trichomonas vaginalis (AMP) NOT DETECTED (NEGATIVE)
[2024-08-10 18:37] LABS: HEPATITIS C VIRUS ABY INDEX 0.36 INDEX (<0.8)
[2024-08-10 18:56] LABS: GC DNA AMPLIFICATION NEGATIVE (NEGATIVE)
== END ==
LOC: M PLALAB 15:24
PROVIDERS: ATTEND Obstetrics & Gynecology
DX: Z34.80 Encounter for supervision of other normal pregnancy, unspecified trimester (principal)

== ENCOUNTER → 2024-08-10 | Outpatient (CLI) | payer OTHER | LOC: M WHC 15:18 | PROVIDERS: ATTEND Obstetrics & Gynecology | DX: Z36.89 Encounter for other specified antenatal screening (principal) ==

== ENCOUNTER → 2024-09-03 | Outpatient (CLI) | payer OTHER | LOC: M WHC 08:07 | PROVIDERS: ATTEND Obstetrics & Gynecology | DX: Z36.89 Encounter for other specified antenatal screening (principal); Z3A.22 22 weeks gestation of pregnancy ==

== ENCOUNTER → 2024-12-16 | Outpatient (CLI) | payer OTHER ==
[~2024-12-16] MED LIST changes: +PRENTAB53 PO
[2024-12-16 16:34] LABS: PLATELET COUNT, AUTOMATED 227 10^3/uL (150-450)
[2024-12-16 17:28] LABS: HIV 1&2 SCREEN NEGATIVE (NEGATIVE)
[2024-12-16 17:36] LABS: HEPATITIS C VIRUS ABY INDEX 0.21 INDEX (<0.8)
[2024-12-16 18:14] LABS: Trichomonas vaginalis (AMP) NOT DETECTED (NEGATIVE)
[2024-12-16 18:37] LABS: GC DNA AMPLIFICATION NEGATIVE (NEGATIVE)
== END ==
LOC: M PLALAB 14:07
PROVIDERS: ATTEND Obstetrics & Gynecology
DX: Z34.80 Encounter for supervision of other normal pregnancy, unspecified trimester (principal)

== ENCOUNTER 2024-12-28 05:24 | Inpatient (IN) | payer OTHER ==
[2024-12-28] VITALS (8 sets, daily range): BP systolic 101–116; BP diastolic 52–72; O2SAT 98–100
[~2024-12-28] VITALS: Ht 152.4 cm; Wt 72.6 kg
[2024-12-28] MEDS: BICITRA 30 ML SOLN UDC PO ONE (05:40)
[2024-12-28 06:19] LABS: PLATELET COUNT, AUTOMATED 215 10^3/uL (150-450)
[2024-12-28] MEDS: LACTATED RINGER'S 1000 ML IV STA (06:46)
[2024-12-28] MEDS: LR 1,000 ML IV SCH ×2 (07:13→13:46)
[2024-12-28 07:16] LABS: HIV 1&2 SCREEN NEGATIVE (NEGATIVE)
[2024-12-28 07:23] LABS: HEPATITIS C VIRUS ABY INDEX 0.13 INDEX (<0.8)
[2024-12-28] MEDS: ceFAZolin SODIUM 2 GM in DEXTROSE 5% (D5W) ADV/MINI-BAG 50 ML IV ONE (09:11)
[2024-12-28] MEDS: ONDANSETRON 4MG 2ML VIAL IV ONE (09:36)
[2024-12-28] MEDS ORDERED: ONDANSETRON 4MG 2ML VIAL As Ordered ONE (10:33)
[2024-12-28] MEDS ORDERED: OXYTOCIN 30UNITS IN 0.9% NaCl 500ML IV BAG As Ordered ONE (10:33)
[2024-12-28] MEDS ORDERED: MORPHINE PRES-FREE INJ 10 MG/10 ML VIAL As Ordered ONE (10:33)
[2024-12-28] MEDS ORDERED: GLYCOPYRROLATE INJ 0.2 MG/ML 2 ML VIAL As Ordered ONE (10:38)
[2024-12-28 11:02] LABS: CORD GAS ABE V -3.0; CORD GAS HCO3 V 21.9 MMOL/L; CORD GAS O2 SAT V 63.1 %; CORD GAS PCO2 V 38.6 mmHg; CORD GAS PH V 7.371 UNITS; CORD GAS PO2 V 23.7 mmHg; CORD GAS SBC V 21.1 MMOL/L; CORD GAS TCO2 V 23.0 MMOL/L
[2024-12-28] MEDS ORDERED: KETOROLAC 30 MG/ML 1 ML VIAL As Ordered ONE (11:02)
[2024-12-28] MEDS ORDERED: NALOXONE INJ 0.4 MG/1 ML VIAL IV PRN ×2 (11:35)
[2024-12-28] MEDS ORDERED: ONDANSETRON 4MG 2ML VIAL IV PRN (11:35)
[2024-12-28] MEDS: SLF 3 ML SYR IV SCH ×2 (11:35→11:40)
[2024-12-28] MEDS ORDERED: NALBUPHINE HCL 10 MG/ML 1 ML AMP IV PRN (11:35)
[2024-12-28] MEDS ORDERED: PERCOCET 5MG/325MG TAB PO PRN (11:35)
[2024-12-28] MEDS ORDERED: **NOTE PATIENT COMMENT** MISC XX SCH (11:35)
[2024-12-28] MEDS ORDERED: diphenhydrAMINE 50 MG/ML VIAL As Ordered ONE (12:41)
[2024-12-28] MEDS: diphenhydrAMINE 50 MG/ML VIAL IV PRN (12:45)
[2024-12-28] MEDS: ONDANSETRON 4MG 2ML VIAL IV PRN (15:20)
[2024-12-28] MEDS: KETOROLAC 30 MG/ML 1 ML VIAL IV SCH (18:10)
[2024-12-29 02:01] VITALS: BP 91/54; O2SAT 99
[2024-12-29 05:51] VITALS: BP 98/57; O2SAT 99
[2024-12-29] MEDS ORDERED: COLA100C5 PO (06:02)
[2024-12-29 07:17] LABS: PLATELET COUNT, AUTOMATED 170 10^3/uL (150-450)
[2024-12-29] MEDS: PRENATAL VITAMINS CHEWABLE TABLET PO SCH (08:24)
[2024-12-29 10:00] VITALS: BP 105/56; O2SAT 100
[2024-12-29] MEDS: MEASLES,MUMPS,RUBELLA VACCINE INJ (MMR-II) SC.IMMUN ONE (10:12)
[2024-12-29] MEDS: RHOGAM 300MCG (1500IU) INJ IM SCH (10:50)
[2024-12-29] MEDS: PERCOCET 5MG/325MG TAB PO PRN (12:29)
[2024-12-29] MEDS: IBUPROFEN 800 MG TAB PO SCH (13:58)
[2024-12-29] MEDS: SIMETHICONE 80MG CHEW TAB PO PRN (13:59)
[2024-12-29 14:00] VITALS: BP 108/60; O2SAT 100
[2024-12-29 18:00] VITALS: BP 102/66; O2SAT 99
[2024-12-29 22:03] VITALS: BP 107/56; O2SAT 100
[2024-12-30 02:03] VITALS: BP 99/52; O2SAT 98
[2024-12-30 05:58] VITALS: BP 117/67; O2SAT 98
[2024-12-30] MEDS: DOCUSATE SODIUM 100 MG CAPSULE PO PRN (08:09)
[2024-12-30 10:00] VITALS: BP 123/71; O2SAT 99
[2024-12-30] MEDS: ACETAMINOPHEN 500 MG TAB PO PRN (12:43)
== END 2024-12-30 16:05 | disposition home or self-care (01) | DRG 540 ==
LOC: M LDI 05:24 → M OBS 13:12
PROVIDERS: ADMIT Specialist; ATTEND Specialist
PROC: 0UB70ZZ Excision of Bilateral Fallopian Tubes, Open Approach (ICD-10-PCS; 2024-12-28)
PROC: 10D00Z1 Extraction of Products of Conception, Low, Open Approach (ICD-10-PCS; principal; 2024-12-28 07:30)
DX: O34.211 Maternal care for low transverse scar from previous cesarean delivery (principal); Z30.2 Encounter for sterilization; Z37.0 Single live birth; Z3A.39 39 weeks gestation of pregnancy